=== PATIENT | female | born 2000 | race Asian ===

== ENCOUNTER 2022-06-24 16:36 | Emergency (ER) | payer OTHER, SELFPAY ==
[2022-06-24 16:39] VITALS: BP 108/59; PULSE 94; RESP 20; TEMP 36.2; O2SAT 99
--- NOTE | 2022-06-24 17:22 | ED.HA ---
HPI - Headache General Chief Complaint: Headache Stated Complaint: headache Time Seen by Provider: 06/24/22 16:52 History of Present Illness HPI Narrative: Patient is a 22-year-old female here for evaluation of a frontal headache for the past 2 days. Patient states the pain is dull and achy in nature, and is worsened whenever she sneezes. She notes that she has had a headache like this in the past that went away without intervention, but she presents today due to the longevity of the headache. She has not attempted any medication for her headache. Has been sneezing, but she denies any visual changes, sinus drainage, fevers, chills, nausea or vomiting. Related Data Allergies Allergy/AdvReac Type Severity Reaction Status Date / Time No Known Allergies Allergy Verified 06/24/22 16:42 Review of Systems Review of Systems: Gen: Denies fevers or chills Eyes: Denies eye pain or visual change ENT: Denies congestion Respiratory: Denies shortness of breath or cough CV: Denies chest pain or palpitations GI: Denies abdominal pain nausea, emesis or diarrhea denies burning, urgency, frequency or hematuria Musculoskeletal: Denies back pain or muscle pain Neuro: Reports headache. Denies numbness, tingling, weakness or focal weakness Skin: Denies rash Except as documented, all other systems reviewed and negative Exam Narrative: APPEARANCE: Well appearing, no pain in distress, well-nourished. Head: Normocephalic and atraumatic. EYES: PERRLA/EOMI, conjunctivae clear NOSE: No nasal drainage EARS: External ear normal in appearance THROAT: Oropharynx is clear. Mucous membranes are moist. NECK: Supple. No adenopathy, no masses. RESPIRATORY: Airway patent, respirations nonlabored. Clear to auscultation bilaterally, no rales, rhonchi, wheezing. CARDIOVASCULAR: Regular rate and rhythm without murmurs, rubs, or gallops. ABDOMINAL: Normoactive bowel sounds. Soft, nontender, nondistended. No rebound tenderness or guarding. MUSCULOSKELETAL: Extremities are warm and well-perfused. Moves all extremities well. No edema. NEURO: Cranial nerves II through XII intact. Finger-nose normal. Normal speech. No focal neurologic deficits. SKIN: Skin is warm and dry. No rashes. PSYCHIATRIC: Normal affect/mood. Course Vital Signs Vital signs: Vital Signs Temperature 97.1 F L 06/24/22 16:39 Pulse Rate 94 06/24/22 16:39 Respiratory Rate 20 06/24/22 16:39 Blood Pressure 108/59 L 06/24/22 16:39 Pulse Oximetry 99 06/24/22 16:39 Oxygen Delivery Room Air 06/24/22 16:39 Temperature 97.1 F L 06/24/22 16:39 Pulse Rate 76 06/24/22 19:13 Respiratory Rate 20 06/24/22 19:13 Blood Pressure 98/70 L 06/24/22 19:13 Pulse Oximetry 100 06/24/22 19:13 Oxygen Delivery Room Air 06/24/22 16:39 MDM - Headache MDM Narrative Medical decision making narrative: 22-year-old healthy female here for evaluation of a headache over the past 2 days. Here, she is nontoxic-appearing, her vital signs are normal, she has no cranial nerve deficits on exam. She has not taken any medication at home, she was given Tylenol in the ED with complete resolution of the headache. She does not have any headache red flags. Shared decision-making was used, decided not to pursue any further work-up. She was given reasons to return to the ED and she voiced understanding. Discharge Plan Discharge Clinical Impression: Tension headache Patient Disposition: Home, Self-Care Condition: Stable Instructions: Antibiotic Form, Acute Headache (ED) Additional Instructions: Your headache is likely due to an upper respiratory infection. For pain, you may alternate between Tylenol and ibuprofen. You can take 1000mg of Tylenol every 6 hours and 800 mg Motrin/ibuprofen every 8 hours. Return to the ER if your headache becomes worse, does not resolve after these medications, you begin to vomit, have changes to your vision, develop a fever, passout, or have other c
[2022-06-24 17:25] VITALS: BP 100/67; PULSE 80; RESP 14; O2SAT 100
[2022-06-24] MEDS: ACETAMINOPHEN 325 MG TABLET 650 MG PO (17:55)
[2022-06-24 19:13] VITALS: BP 98/70; PULSE 76; RESP 20; O2SAT 100
== END 2022-06-24 19:14 | disposition home or self-care (01) ==
PROVIDERS: Emergency Provider General Practice
DX: G44.209 Tension-type headache, unspecified, not intractable (principal)
CPT/HCPCS: 99283; A9270

== ENCOUNTER 2022-08-31 12:21 | Emergency (ER) | payer OTHER, SELFPAY ==
--- NOTE | ~2022-08-31 | XR_ITS ---
XR chest 2V DATE: 08/31/2022 16:00 INDICATION: Cough, shortness of breath for 3 days TECHNIQUE: PA and lateral views COMPARISON: None FINDINGS: Normal heart size. No hilar or mediastinal enlargement. No pulmonary infiltrate or consolid ation, pleural effusion or pulmonary vascular congestion or pneumothorax. IMPRESSION: Negative Reviewed, dictated and finalized at location A. IMPRESSION: Negative
[2022-08-31 12:35] VITALS: BP 121/77; PULSE 83; RESP 16; TEMP 36.8; O2SAT 98
[2022-08-31 13:36] LABS: Influenza A QL RT-PCR Negative (Negative); Influenza B QL RT-PCR Negative (Negative); SARS-CoV-2 RNA PCR Negative
--- NOTE | 2022-08-31 15:07 | ED.GENADULT ---
HPI - General Adult General Chief complaint: Fever <WAYNE Benz Last Filed: 08/31/22 18:47> Stated complaint: fever <WAYNE Benz Last Filed: 08/31/22 18:47> Time Seen by Provider: 08/31/22 14:53 <Mercedes Le PA-C - Last Filed: 08/31/22 18:47> History of Present Illness HPI narrative: Patient is a healthy 22-year-old female here for evaluation of sore throat, cough and chills for the past 3 days. Patient has not yet taken her temperature but just states that she has chills at nighttime. She feels improved after taking Tylenol. Denies relief of her cough after taking Mucinex. Presents today due to longevity of symptoms. She took a COVID test that was negative. Denies sick contacts. No chest pain, shortness of breath, leg swelling, nausea, vomiting, abdominal pain. <WAYNE Benz Last Filed: 08/31/22 18:47> Related Data Allergies/adverse reactions: Allergies Allergy/AdvReac Type Severity Reaction Status Date / Time No Known Allergies Allergy Verified 08/31/22 12:34 <WAYNE Benz Last Filed: 08/31/22 18:47> Review of Systems Review of Systems: Gen.: Reports fevers. Eyes: Denies eye pain or visual change ENT: Denies congestion Respiratory: Reports cough. Denies shortness of breath CV: Denies chest pain or palpitations GI: Denies abdominal pain nausea, emesis or diarrhea denies burning, urgency, frequency or hematuria Musculoskeletal: Denies back pain or muscle pain Neuro: Denies numbness, tingling, weakness or focal weakness Skin: Denies rash Except as documented, all other systems reviewed and negative <WAYNE Benz Last Filed: 08/31/22 18:47> Exam Narrative: APPEARANCE: Well appearing, no pain in distress, well-nourished. Head: Normocephalic and atraumatic. EYES: PERRLA/EOMI, conjunctivae clear NOSE: No nasal drainage EARS: TMs are clear bilaterally. External ear normal in appearance THROAT: Oropharynx is clear. Mucous membranes are moist. NECK: Supple. No adenopathy, no masses. RESPIRATORY: Airway patent, respirations nonlabored. Clear to auscultation bilaterally, no rales, rhonchi, wheezing. CARDIOVASCULAR: Regular rate and rhythm without murmurs, rubs, or gallops. ABDOMINAL: Normoactive bowel sounds. Soft, nontender, nondistended. No rebound tenderness or guarding. MUSCULOSKELETAL: Extremities are warm and well-perfused. Moves all extremities well. No edema. NEURO: Normal speech. No focal neurologic deficits. SKIN: Skin is warm and dry. No rashes. PSYCHIATRIC: Normal affect/mood.. <Mercedes Le PA-C - Last Filed: 08/31/22 18:47> Course STUDENT SUPPORT ADVISOR/PA Physician Supervision For this encounter, I have reviewed the mid-level provider documentation, treatment plan and medical decision making. I have had [id number] time with the patient. Patient and her male friend were very pleasant. she was concerned about having COVID under swab was negative. She is comfortable being discharged home with symptomatic treatment. <King Madsen MD - Last Filed: 09/01/22 12:42> Vital Signs Vital signs: Vital Signs Temperature 98.3 F 08/31/22 12:35 Pulse Rate 83 08/31/22 12:35 Respiratory Rate 16 08/31/22 12:35 Blood Pressure 121/77 08/31/22 12:35 Pulse Oximetry 98 08/31/22 12:35 Temperature 98.3 F 08/31/22 12:35 Pulse Rate 83 08/31/22 12:35 Respiratory Rate 16 08/31/22 12:35 Blood Pressure 121/77 08/31/22 12:35 Pulse Oximetry 98 08/31/22 12:35 <Mercedes Le PA-C - Last Filed: 08/31/22 18:47> Vital Signs Temperature 98.3 F 08/31/22 12:35 Pulse Rate 83 08/31/22 12:35 Respiratory Rate 16 08/31/22 12:35 Blood Pressure 121/77 08/31/22 12:35 Pulse Oximetry 98 08/31/22 12:35 Temperature 98.3 F 08/31/22 12:35 Pulse Rate 83 08/31/22 12:35 Respiratory Rate 16 08/31/22 12:35 Blood Pressure 121
[2022-08-31] MEDS: BENZONATATE 100 MG CAPSULE PO (15:17)
== END 2022-08-31 16:50 | disposition home or self-care (01) ==
PROVIDERS: Emergency Medicine; Emergency Provider Emergency Medicine
DX: J06.9 Acute upper respiratory infection, unspecified (principal); Z20.822 Contact with and (suspected) exposure to COVID-19
CPT/HCPCS: 71046; 87502; 99283; A9270; U0003; U0005